=== PATIENT | female | born 1950 | race Caucasian/White ===

== ENCOUNTER 2019-11-30 15:55 | Emergency (ER) | payer MEDICARE, OTHER ==
--- NOTE | 2019-11-30 16:02 | ERPHSYRPT ---
- History of Present Illness Time Seen by Provider: 11/30/19 16:02 Source: patient, family Exam Limitations: no limitations Physician History: 69 y/o white female with h/o htn presents to ED after a dizzy spell and near syncopal episode at 1100 this am. [place] pt found to have a hr in the 30s per report. pt states she had a similar episode on thanksgiving. pt states she thinks eating a big meal and walking more than usual precipitated both these episodes. pt denies cp during or after these episodes. no n/v/d. no changes in her medications. Timing/Duration: today, resolved prior to arrival Severity: mild Deficits: no difficulties Baseline/Normal Cognition: alert oriented x 3 Current Cognition: alert oriented x 3 Baseline Gait: walks w/o assistance Associated Symptoms: other (dizziness and near syncope) Allergies/Adverse Reactions: No Known Drug Allergies Allergy (Unverified 11/30/19 16:36) Home Medications: Amlodipine Besylate 10 mg PO DAILY 11/30/19 [History] Citalopram Hydrobromide [Citalopram HBr] 10 mg PO DAILY 11/30/19 [History] Lisinopril/Hydrochlorothiazide [Lisinopril-Hctz 10-12.5 mg Tab] 10 mg PO DAILY 11/30/19 [History] Pravastatin Sodium 40 mg PO DAILY 11/30/19 [History] - Review of Systems Constitutional: No Symptoms Eyes: No Symptoms Ears, Nose, & Throat: No Symptoms Respiratory: No Symptoms Cardiac: No Symptoms Abdominal/Gastrointestinal: No Symptoms Genitourinary Symptoms: No Symptoms Musculoskeletal: No Symptoms Skin: No Symptoms Neurological: Dizziness Psychological: No Symptoms Endocrine: No Symptoms Hematologic/Lymphatic: No Symptoms Immunological/Allergic: No Symptoms All Other Systems: Reviewed and Negative - Past Medical History Neurological History: No Pertinent History ENT History: No Pertinent History Cardiac History: No Pertinent History Respiratory History: No Pertinent History Endocrine Medical History: No Pertinent History Musculoskeletal History: No Pertinent History GI Medical History: No Pertinent History History: No Pertinent History Psycho-Social History: No Pertinent History Female Reproductive Disorders: No Pertinent History - Past Surgical History Neuro Surgical History: No Pertinent History Cardiac: No Pertinent History Respiratory: No Pertinent History Gastrointestinal: No Pertinent History Genitourinary: No Pertinent History Musculoskeletal: No Pertinent History Female Surgical History: No Pertinent History - Nursing Vital Signs Nursing Vital Signs: Initial Vital Signs Temperature 97.7 F 11/30/19 16:00 Pulse Rate 59 L 11/30/19 16:00 Respiratory Rate 16 11/30/19 16:00 Blood Pressure 151/56 11/30/19 16:00 O2 Sat by Pulse Oximetry 98 11/30/19 16:00 Pain Scale Pain Intensity 0 - [place] Coma Scale Best Eye Response ([place]): (4) open spontaneously Best Verbal Response ([place]): (5) oriented Best Motor Response ([place]): (6) obeys commands [place] Total: 15 - Physical Exam General Appearance: no apparent distress, alert Eye Exam: bilateral eye: normal inspection, PERRL, EOMI Ears, Nose, Throat Exam: normal ENT inspection, moist mucous membranes Neck Exam: normal inspection, non-tender, supple, full range of motion Respiratory: normal breath sounds, lungs clear, airway intact, No chest tenderness, No respiratory distress Cardiovascular: regular rate/rhythm, normal heart sounds, normal peripheral pulses Gastrointestinal: soft, normal bowel sounds, No tenderness Pelvic Exam: not done Rectal Exam: not done Back Exam: normal inspection, normal range of motion, No CVA tenderness, No vertebral tenderness Extremity Exam: normal inspection, normal range of motion, pelvis stable Mental Status: alert, oriented x 3, 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 Exam: normal hearing, normal speech, PERRL Coordination/Gait: normal finger to nose, normal gait, normal cerebellar function Motor/Sensory: no motor deficit, no sensory deficit, no pronator drift Skin Exam: normal color, warm, dry SpO2 Interpretation: normal O2 Delivery: Room Air - Course Nursing assessment & vital signs reviewed: Yes EKG Interpreted by Me: RATE (54), Sinus Rhythm, NORMAL AXIS, NORMAL INTERVALS, NORMAL QRS, Other (no comparison ekg) Ordered Tests: Active Orders 24 hr Category Date Time Status Clean Catch Urine Specimen STAT Care 11/30/19 16:50 Active EKG-ER Only STAT Care 11/30/19 16:15 Active IV Insertion STAT Care 11/30/19 16:15 Active HEAD WITHOUT CONTRAST [CT] Stat Exams 11/30/19 16:17 Taken CBC W DIFF Stat Lab 11/30/19 16:45 Completed CMP Stat Lab 11/30/19 16:45 Completed MAGNESIUM Stat Lab 11/30/19 16:45 Completed TROPONIN Q3H Lab 11/30/19 16:45 Completed TROPONIN Q3H Lab 11/30/19 19:30 Ordered TROPONIN Q3H Lab 11/30/19 22:30 Ordered TROPONIN Q3H Lab 12/01/19 01:30 Ordered TROPONIN Q3H Lab 12/01/19 04:30 Ordered UA W/RFX UR CULTURE Stat Lab 11/30/19 17:38 Completed Medication Summary Discontinued Medications Generic Name Dose Route Start Last Admin Trade Name Freq PRN Reason Stop Dose Admin Sodium Chloride 1,000 mls @ 999 mls/hr 11/30/19 16:15 11/30/19 17:44 Sodium Chloride 0.9% 1000 Ml IV 11/30/19 17:15 Infused .Q1H1M STA Infusion Sodium Chloride Confirm 11/30/19 16:37 Sodium Chloride 0.9% 1000 Ml Administered 11/30/19 16:38 Dose 1,000 mls @ ud .ROUTE .STK-MED ONE Lab/Rad Data: Laboratory Result Diagrams 11/30/19 16:45 11/30/19 16:45 Laboratory Results 11/30/19 11/30/19 11/30/19 Range/Units 17:38 16:45 16:45 WBC (4.0-10.5) K/mm3 RBC (4.1-5.4) M/mm3 Hgb (12.0-16.0) gm/dl Hct (35-47) % MCV (78-100) fl MCH (26-32) pg MCHC (32-36) g/dl RDW (11.5-14.0) % Plt Count (150-450) K/mm3 MPV (7.5-11.0) fl Gran % (36.0-66.0) % Eos # (Auto) (0-0.5) Absolute Lymphs (auto) (1.0-4.6) Absolute Monos (auto) (0.0-1.3) Lymphocytes % (24.0-44.0) % Monocytes % (0.0-12.0) % Eosinophils % (0.00-5.0) % Basophils % (0.0-0.4) % Absolute Granulocytes (1.4-6.9) Basophils # (0-0.4) Sodium 139 (137-145) mmol/L Potassium 3.9 (3.5-5.1) mmol/L Chloride 102 (98-107) mmol/L Carbon Dioxide 27 (22-30) mmol/L Anion Gap 14.2 (5-15) MEQ/L BUN 20 H (7-17) mg/dL Creatinine 0.83 (0.52-1.04) mg/dL Estimated GFR > 60.0 ML/MIN Glucose 104 (74-106) mg/dL Calcium 9.8 (8.4-10.2) mg/dL Magnesium 2.2 (1.6-2.3) mg/dL Total Bilirubin 0.80 (0.2-1.3) mg/dL AST 27 (14-36) U/L ALT 16 (0-35) U/L Alkaline Phosphatase 71 (38-126) U/L Troponin I < 0.012 (0.000-0.034) ng/mL Serum Total Protein 7.8 (6.3-8.2) g/dL Albumin 4.8 (3.5-5.0) g/dL Urine Color YELLOW (YELLOW) Urine Appearance CLOUDY (CLEAR) Urine pH 5.0 (5-6) Ur Specific Car[place] 1.012 (1.005-1.025) Urine Protein NEGATIVE (Negative) Urine Ketones NEGATIVE (NEGATIVE) Urine Blood SMALL (0-5) Laci/ul Urine Nitrite NEGATIVE (NEGATIVE) Urine Bilirubin NEGATIVE (NEGATIVE) Urine Urobilinogen NEGATIVE (0-1) mg/dL Ur Leukocyte Esterase SMALL (NEGATIVE) Urine WBC (Auto) 3-5 (0-5) /HPF Urine RBC (Auto) 0-2 (0-2) /HPF U Hyaline Cast (Auto) 0-2 (0-2) /LPF U Epithel Cells (Auto) MODERATE (FEW) /HPF Urine Bacteria (Auto) RARE (NEGATIVE) /HPF Urine Mucus (Auto) SLIGHT (NEGATIVE) /HPF Urine Culture Reflexed NO (NO) Urine Glucose NEGATIVE (NEGATIVE) mg/dL 11/30/19 Range/Units 16:45 WBC 13.4 H (4.0-10.5) K/mm3 RBC 4.58 (4.1-5.4) M/mm3 Hgb 14.3 (12.0-16.0) gm/dl Hct 43.5 (35-47) % MCV 95.0 (78-100) fl MCH 31.2 (26-32) pg MCHC 32.9 (32-36) g/dl RDW 14.5 H (11.5-14.0) % Plt Count 292 (150-450) K/mm3 MPV 11.0 (7.5-11.0) fl Gran % 80.0 H (36.0-66.0) % Eos # (Auto) 0.11 (0-0.5) Absolute Lymphs (auto) 2.14 (1.0-4.6) Absolute Monos (auto) 0.42 (0.0-1.3) Lymphocytes % 15.9 L (24.0-44.0) % Monocytes % 3.1 (0.0-12.0) % Eosinophils % 0.8 (0.00-5.0) % Basophils % 0.2 (0.0-0.4) % Absolute Granulocytes 10.72 H (1.4-6.9) Basophils # 0.03 (0-0.4) Sodium (137-145) mmol/L Potassium (3.5-5.1) mmol/L Chloride (98-107) mmol/L Carbon Dioxide (22-30) mmol/L Anion Gap (5-15) MEQ/L BUN (7-17) mg/dL Creatinine (0.52-1.04) mg/dL Estimated GFR ML/MIN Glucose (74-106) mg/dL Calcium (8.4-10.2) mg/dL Magnesium (1.6-2.3) mg/dL Total Bilirubin (0.2-1.3) mg/dL AST (14-36) U/L ALT (0-35) U/L Alkaline Phosphatase (38-126) U/L Troponin I (0.000-0.034) ng/mL Serum Total Protein (6.3-8.2) g/dL Albumin (3.5-5.0) g/dL Urine Color (YELLOW) Urine Appearance (CLEAR) Urine pH (5-6) Ur Specific Carver (1.005-1.025) Urine Protein (Negative) Urine Ketones (NEGATIVE) Urine Blood (0-5) Laci/ul Urine Nitrite (NEGATIVE) Urine Bilirubin (NEGATIVE) Urine Urobilinogen (0-1) mg/dL Ur Leukocyte Esterase (NEGATIVE) Urine WBC (Auto) (0-5) /HPF Urine RBC (Auto) (0-2) /HPF U Hyaline Cast (Auto) (0-2) /LPF U Epithel Cells (Auto) (FEW) /HPF Urine Bacteria (Auto) (NEGATIVE) /HPF Urine Mucus (Auto) (NEGATIVE) /HPF Urine Culture Reflexed (NO) Urine Glucose (NEGATIVE) mg/dL - Progress Progress: improved Progress Note: 11/30/19 17:57 RT out of holter monitors. pt feels better Counseled pt/family regarding: lab results, diagnosis, need for follow-up, rad results - Departure Departure Disposition: Home Clinical Impression: Dizziness, UTI (urinary tract infection) Condition: Stable Critical Care Time: No Referrals: LALITHA CHRISTINA MD [Primary Care Provider] - Additional Instructions: drink plenty of fluids. follow up with dr. christina on tuesday12/03/2019 for further management Prescriptions: Cephalexin Mh 500 mg [Keflex 500 mg] 500 mg PO TID #21 capsule
[2019-11-30] MEDS ORDERED: Sodium Chloride 0.9% 1000 ML 1,000 ML IV STA (16:15)
[2019-11-30] MEDS ORDERED: Sodium Chloride 0.9% 1000 ML 1,000 ML ONE (16:37)
[2019-11-30 16:55] LABS: Absolute Neutrophil Ct (ANC) 10.72 (1.4-6.9); BASOPHIL % 0.2 % (0.0-0.4); Basophil (Absolute #) 0.03 (0-0.4); Eosinophil % 0.8 % (0.00-5.0); Eosinophil (Absolute #) 0.11 (0-0.5); Hematocrit 43.5 % (35-47); Hemoglobin 14.3 gm/dl (12.0-16.0); Lymphocyte (Absolute #) 2.14 (1.0-4.6); Lymphocytes % 15.9 % (24.0-44.0); Mean Corpuscular Hemoglobin 31.2 pg (26-32); Mean Corpuscular Hgb Concent. 32.9 g/dl (32-36); Monocyte (Absolute #) 0.42 (0.0-1.3); Monocytes % 3.1 % (0.0-12.0); Platelet Count 292 K/mm3 (150-450); Red Blood Count 4.58 M/mm3 (4.1-5.4); Red Cell Distribution Width 14.5 % (11.5-14.0); White Blood Count 13.4 K/mm3 (4.0-10.5)
[2019-11-30 17:40] LABS: ALBUMIN 4.8 g/dL (3.5-5.0); ALKALINE PHOSPHATASE 71 U/L (38-126); ANION GAP 14.2 MEQ/L (5-15); BLOOD UREA NITROGEN 20 mg/dL (7-17); CHLORIDE 102 mmol/L (98-107); Calcium 9.8 mg/dL (8.4-10.2); Carbon Dioxide 27 mmol/L (22-30); Creatinine 1 0.83 mg/dL (0.52-1.04); Glucose 104 mg/dL (74-106); MAGNESIUM 2.2 mg/dL (1.6-2.3); Potassium 3.9 mmol/L (3.5-5.1); SGOT/AST 27 U/L (14-36); SGPT/ALT 16 U/L (0-35); SODIUM 139 mmol/L (137-145); Total Protein 7.8 g/dL (6.3-8.2)
[2019-11-30 17:45] LABS: Appearance CLOUDY (CLEAR); Bacteria RARE /HPF (NEGATIVE); Bilirubin NEGATIVE (NEGATIVE); Blood SMALL Ery/ul (0-5); Epithelial Cells MODERATE /HPF (FEW); Glucose NEGATIVE (NEGATIVE); Hyaline Casts 0-2 /LPF (0-2); Ketones NEGATIVE (NEGATIVE); Leukocyte Esterase SMALL (NEGATIVE); Mucus SLIGHT /HPF (NEGATIVE); Nitrite NEGATIVE (NEGATIVE); Protein,Urine Dip NEGATIVE (Negative); RBC 0-2 /HPF (0-2); Specific Gravity 1.012 (1.005-1.025); Urobilinogen NEGATIVE mg/dL (0-1)
[2019-11-30 17:49] VITALS: O2SAT 97
[2019-11-30 17:51] VITALS: BP 140/51; PULSE 48
[2019-11-30] MEDS ORDERED: KEFLEX 500 MG PO ONE (18:00)
[2019-11-30] MEDS ORDERED: KEFLEX 500 MG ONE (18:02)
--- NOTE | 2019-11-30 21:56 | XRAY ---
Indication: Periodic dizziness and loss of consciousness. No known injury. Multiple contiguous axial images obtained through the head without contrast. Comparison: None Normal appearing brain parenchyma, ventricles, and bony calvarium. Visualized paranasal sinuses and mastoid air cells are clear. Impression: Normal CT head without contrast exam.
== END 2019-11-30 18:19 | disposition home or self-care (01) ==
LOC: ED 15:55
DX: R42 Dizziness and giddiness (principal); N39.0 Urinary tract infection, site not specified
CPT/HCPCS: 36000; 36415; 70450; 80053; 81001; 83735; 84484; 85025; 93005; 96360; 99284; A9270-GY

== ENCOUNTER 2023-04-05 10:14 | Day surgery (SDC) | payer MEDICARE, OTHER ==
[~2023-04-05 10:14] MED LIST: ACETAZOLAMIDE 250 MG TABLET PO ONE; Ak-Dilate OPHTHALMIC*** 1.065 ML, Cyclogyl 1% OPHTH SOL 1.065 ML, GATIFLOXACIN 0.5% OPH... OP ONE; BETADINE 5% OPHTHALMIC 30 ML OP ONE; Lactated Ringers 1,000 ML IV SCH; NON-FORMULARY ITEM OP ONE; TETRACAINE 0.5% STERI-UNIT SOL OP ONE; Zofran 4 MG/2 ML VIAL IV PRN; cefUROXime sodium 0.005 GM in Sodium Chloride Flush 30 ML*** 0.5 ML IJ ONE
[2023-04-05] MEDS ORDERED: Epinephrine Preservative Free 1 MG/ML IJ ONE (10:15)
[2023-04-05] MEDS ORDERED: Lactated Ringers 1,000 ML IV ONE (10:21)
[2023-04-05] MEDS ORDERED: Versed 2 MG/2 ML Injection ONE (13:21)
[2023-04-05] MEDS ORDERED: Xylocaine-Mpf 2% 5 Ml Vial ONE (13:21)
[2023-04-05] MEDS ORDERED: DIPRIVAN 200 MG/20 ML IV ONE (13:21)
[2023-04-05 13:56] VITALS: O2SAT 95
[2023-04-05 14:06] VITALS: BP 131/72; PULSE 60
== END 2023-04-05 14:15 | disposition home or self-care (01) ==
LOC: SDC 10:14
PROVIDERS: ATTEND Ophthalmology
DX: H25.811 Combined forms of age-related cataract, right eye (principal)
CPT/HCPCS: 99100; C1780; J0171; J2250; J2704; A9270-GY

== ENCOUNTER 2023-05-10 08:31 | Day surgery (SDC) | payer MEDICARE, OTHER ==
[~2023-05-10 08:31] MED LIST changes: -ACETAZOLAMIDE 250 MG TABLET PO ONE; -Zofran 4 MG/2 ML VIAL IV PRN
[2023-05-10] MEDS ORDERED: Epinephrine Preservative Free 1 MG/ML IJ ONE (08:32)
[2023-05-10] MEDS ORDERED: Lactated Ringers 1,000 ML IV ONE (09:00)
[2023-05-10] MEDS ORDERED: Zofran 4 MG/2 ML VIAL IV PRN (10:30)
[2023-05-10] MEDS ORDERED: ACETAZOLAMIDE 250 MG TABLET PO ONE (10:30)
[2023-05-10] MEDS ORDERED: DIPRIVAN 200 MG/20 ML IV ONE ×2 (11:40→11:55)
[2023-05-10 12:12] VITALS: PULSE 60
[2023-05-10 12:15] VITALS: BP 103/41; O2SAT 96
== END 2023-05-10 12:42 | disposition home or self-care (01) ==
LOC: SDC 08:31
PROVIDERS: ATTEND Ophthalmology
DX: H25.812 Combined forms of age-related cataract, left eye (principal)
CPT/HCPCS: 99100; C1780; J0171; J2704; A9270-GY

== ENCOUNTER 2024-02-20 08:28 | Day surgery (SDC) | payer MEDICARE ==
--- NOTE | 2024-02-20 08:27 | HP ---
DATE OF SURGERY: 02/20/2024 HISTORY OF PRESENT ILLNESS: The patient is a 74-year-old had ultrasound show cholelithiasis. No nausea or vomiting at this time. She had a sister pass away with metastatic cancer. She denies any liver problems. PAST MEDICAL HISTORY: Dysrhythmia in the past. Hypertension. Anxiety. Hyperlipidemia. Depression. PAST SURGICAL HISTORY: Colonoscopy. Tubal. Pacemaker defibrillator in the past. MEDICATIONS: Cranberry, multivitamin, citalopram, pravastatin, amlodipine, Lisinopril/hydrochlorothiazide. ALLERGIES: NKDA. FAMILY HISTORY: Bladder cancer. SOCIAL HISTORY: No smoking. Occasional alcohol use. REVIEW OF SYSTEMS: Twelve systems reviewed. No current chest pain or palpitations. Other systems negative or noncontributory as above and per preadmission questionnaire. PHYSICAL EXAMINATION: Height 5 feet 5 inches. BMI 28.62. GENERAL: No acute distress. HEENT: Sclerae nonicteric. EOMI. Oral mucous membranes moist. NECK: No JVD. CHEST: Equal excursion, nonlabored breathing. CVS: Regular rate and rhythm. ABDOMEN: Soft. EXTREMITIES: No significant edema. NEURO: Alert, oriented, moving extremities symmetrically. PSYCH: Appropriate mood and affect. SKIN: Dry. IMPRESSION: Chronic cholecystitis, symptomatic cholelithiaisis. I feel patient would benefit from cholecystectomy. Shown the gallbladder pamphlet and risk sheet, explained the procedure in detail but not limited to bleeding or infection, risk of trocar injury or hernia, risk of bile leak, bile duct injury, retained stone or sludge possibly requiring ERCP or other procedure, risk of anesthesia, deep venous thrombosis, pulmonary embolism, pneumonia, risk of aches, pains, bloating, constipation and/or loose stools possibly even chronic in nature and possibly no improvement in preoperative symptoms possibly requiring further work up and/or studies, endoscopies, other studies or referrals, will proceed with laparoscopic cholecystectomy possible open as an outpatient. Otherwise, continue medications for hypertension, anxiety, depression and hyperlipidemia.
[~2024-02-20 08:28] MED LIST changes: -Ak-Dilate OPHTHALMIC*** 1.065 ML, Cyclogyl 1% OPHTH SOL 1.065 ML, GATIFLOXACIN 0.5% OPH... OP ONE; -BETADINE 5% OPHTHALMIC 30 ML OP ONE; +Lactated Ringers 1,000 ML IV ONE; -Lactated Ringers 1,000 ML IV SCH; -NON-FORMULARY ITEM OP ONE; +Sensorcaine 0.25% 10 ML ONE; -TETRACAINE 0.5% STERI-UNIT SOL OP ONE; -cefUROXime sodium 0.005 GM in Sodium Chloride Flush 30 ML*** 0.5 ML IJ ONE
[2024-02-20] MEDS ORDERED: MEFOXIN 2 GM PREMIX** 2 GM/50 ML ML IV ONE (08:41)
[2024-02-20] MEDS ORDERED: Lactated Ringers 1,000 ML IV ONE (08:41)
[2024-02-20] MEDS: MEFOXIN 2 GM PREMIX** 2 GM/50 ML ML IV SCH (08:45)
[2024-02-20] MEDS: Lactated Ringers 1,000 ML IV SCH (08:45)
[2024-02-20 09:02] VITALS: PULSE 60; RESP 16
[2024-02-20 09:17] LABS: ALBUMIN 4.2 g/dL (3.5-5.0); ANION GAP 11.7 MEQ/L (5-15); BILIRUBIN,TOTAL 0.8 mg/dL (0.2-1.3); Calcium 8.9 mg/dL (8.4-10.2); Creatinine 1 0.61 mg/dL (0.52-1.04); EST GLOMERULAR FILTRATION RATE 93.2 ML/MIN; Potassium 4.5 mmol/L (3.5-5.1); Total Protein 7.5 g/dL (6.3-8.2)
[2024-02-20] MEDS ORDERED: Xylocaine-Mpf 2% 5 Ml Vial ONE (10:11)
[2024-02-20] MEDS ORDERED: Decadron 4 MG INJ ONE ×2 (10:11→10:12)
[2024-02-20] MEDS ORDERED: Zofran 4 MG/2 ML VIAL ONE ×2 (10:11→12:10)
[2024-02-20] MEDS ORDERED: ROCURONIUM BROMIDE IV ONE (10:11)
[2024-02-20] MEDS ORDERED: BRIDION 200MG/2ML IV ONE (10:11)
[2024-02-20] MEDS ORDERED: SUBLIMAZE 100 MCG/2 ML ONE (10:39)
[2024-02-20] MEDS ORDERED: DIPRIVAN 200 MG/20 ML IV ONE (10:41)
[2024-02-20] MEDS ORDERED: OFIRMEV 100 ML IV ONE (10:43)
[2024-02-20] MEDS ORDERED: PHENYLEPHRINE HCL ONE (11:19)
[2024-02-20] MEDS ORDERED: TORAdol 30 mg Injection ONE (11:29)
[2024-02-20 12:52] VITALS: TEMP 97.6
[2024-02-20] MEDS: NORCO 5/325 MG PO PRN (13:02)
[2024-02-20 13:44] VITALS: BP 134/62; O2SAT 97
--- NOTE | 2024-02-21 09:07 | OP ---
SURGERY DATE/TIME: 02/20/2024 1046 PREOPERATIVE DIAGNOSIS: Acute exacerbation of chronic cholecystitis, symptomatic cholelithiasis. POSTOPERATIVE DIAGNOSIS: Acute exacerbation of chronic cholecystitis, symptomatic cholelithiasis. PROCEDURE: Laparoscopic cholecystectomy. SURGEON: Dr. Javon Patel. ANESTHESIA: General. ESTIMATED BLOOD LOSS: Minimal. INDICATIONS: As noted above. Risks and benefits explained in detail but not limited to and consent obtained. DESCRIPTION OF PROCEDURE AND FINDINGS: The patient taken to the operating room. General anesthesia induced. Abdomen prepped and draped in usual sterile fashion. After official time out and no disagreement with planned procedure, a transverse incision made in the supraumbilical area. Fascia grasped, pulled upward. Veress needle inserted and tested with saline. Pneumoperitoneum accomplished insufflating opening pressure of 0-15. A 5 mm bladeless port and camera were inserted without difficulty followed by two - 5 mm right upper quadrant ports and 11 mm epigastric port. The gallbladder is quite distended. It had omentum stuck over and omental adhesions taken down posterior, lateral to anterior fashion. Slowly and carefully the cystic duct and main cystic artery were isolated until critical view obtained both anteriorly and posteriorly this took some time as a stone was wedged down in the neck of the gallbladder but slowly and carefully cleared until critical view obtained anteriorly and posteriorly. Once this is accomplished, the cystic duct and cystic artery clipped x3 and divided in the usual fashion. The gallbladder slowly and carefully dissected free from its dense attachments to the liver bed staying directly on the gallbladder wall. One of the graspers tore a little, tiny pin hole in the gallbladder spilling a small amount of clear hydrops this is suction irrigated as clear as possible. Continued dissecting the gallbladder free clipping additional oozing side branches off the cystic artery, cystic vein as necessary directly on the gallbladder wall. Just prior to releasing from final attachments to the anterior edge of the liver, the liver bed re-inspected. Clips noted in place in the cystic duct and cystic artery stumps. No signs of any active bleeding or bile leakage. It was felt there is no benefit of drain placement. The gallbladder was released from final attachments to anterior edge of the liver and placed in the provided sac pulled up into the epigastrium, decompressed of hydrops and removed a large gallstone allowing the gallbladder to be pulled free in the bag and passed off. The fascial defect closed with puncture closure device with #1 Vicryl. Copious amount of irrigation accomplished lateral to the liver and subhepatic space irrigating clear. Liver bed re-inspected. Clips noted to be in place cystic duct and cystic artery stumps. No signs of any active bleeding or bile leakage. It was felt there was no benefit in drain placement. Pneumoperitoneum decompressed. The wound irrigated out. Skin incision closed with 4-0 Vicryl. 0.25% Marcaine local injected along the skin incision fascial defect at the end of the procedure. Steri-Strips and sterile dressing applied. There were no immediate complications. Findings discussed with the family out in the waiting area.
== END 2024-02-20 13:45 | disposition home or self-care (01) ==
LOC: SDC 08:28
PROVIDERS: ATTEND Surgery
DX: K80.10 Calculus of gallbladder with chronic cholecystitis without obstruction (principal); I10 Essential (primary) hypertension; Z80.52 Family history of malignant neoplasm of bladder
CPT/HCPCS: 36415; 80053; J0694; J1100; J1885; J2371; J2405; J2704; J3010; A9270-GY